=== PATIENT | female | born 1995 ===

== ENCOUNTER 2018-01-31 09:56 | Emergency (ER) | payer MEDICAID, OTHER ==
[2018-01-31 10:32] VITALS: RESP 17; O2SAT 100; BMI 23.9
[2018-01-31] MEDS ORDERED: Sodium Chloride 0.9% 1,000 ML IV ONE (10:41)
[2018-01-31] MEDS ORDERED: levETIRAcetam 1,000 MG in Sodium Chloride 0.9% 100 ML IVPB STA (10:42)
[2018-01-31] MEDS ORDERED: Sodium Chloride 0.9% 1,000 ML ONE (10:56)
[2018-01-31 11:04] LABS: BASO % 0.2 % (0.0-2.0); EOS % 0.4 % (0.0-4.0); HEMOGLOBIN 13.4 g/dL (11.0-16.0); LYMPH # 1.2 K/uL (1.0-4.3); LYMPH % 10.9 % (20.0-40.0); MEAN CORPUSCULAR HEMOGLOBIN 30.1 pg (27.0-31.0); MEAN CORPUSCULAR HGB CONC 33.8 g/dL (33.0-37.0); MEAN PLATELET VOLUME 8.8 fL (7.2-11.7); MONO # 0.6 K/uL (0.0-0.8); MONO % 5.7 % (0.0-10.0); NEUT # 9.2 K/uL (1.8-7.0); NEUT % 82.8 % (50.0-75.0); RBC 4.47 Mil/uL (3.80-5.20); RED CELL DISTRIBUTION WIDTH 13.8 % (11.5-14.5); WHITE BLOOD COUNT 11.1 K/uL (4.8-10.8)
[2018-01-31 11:20] LABS: ALB/GLOB RATIO 1.2 (1.0-2.1); ALBUMIN 4.2 g/dL (3.5-5.0); ALT/SGPT 21 U/L (9-52); AST/SGOT 32 U/L (14-36); BLOOD UREA NITROGEN 16 mg/dL (7-17); GFR AFRICAN-AMERICAN > 60; GFR NON-AFRICAN AMERICAN > 60
--- NOTE | 2018-01-31 12:01 | C.PDOC ---
History Of Present Illness 22 year old female brought in by ambulance s/p seizure at work today. Seizure is described as tonic-clonic, and witnessed by her coworkers. She reports PMHx of seizure disorder, last seizure was approx 1 year ago. Patient admits to not taking her Keppra for approx 1 year. Currently her only complaint is a mild headache. She denies neck pain, urinary or bowel incontinence, or other injuries. Time Seen by Provider: 01/31/18 09:58 Chief Complaint (Nursing): Seizure History Per: Patient History/Exam Limitations: no limitations Recent Seizure Activity Began: Just Before Arrival Number Of Seizures: One Associated Symptoms: Bit Tongue Past Medical History Reviewed: Historical Data, Nursing Documentation, Vital Signs Vital Signs: Last Vital Signs Temp 98.6 F 01/31/18 12:59 Pulse 82 01/31/18 12:59 Resp 17 01/31/18 12:59 BP 103/70 01/31/18 12:59 Pulse Ox 100 01/31/18 13:14 - Medical History PMH: Seizures - [facility] Procedures CL REDUC DISLOC-SHOULDER (03/16/14) Family History: States: No Known Family Hx - Social History Hx Tobacco Use: No Hx Alcohol Use: Yes Hx Substance Use: No - Immunization History Hx Tetanus Toxoid Vaccination: No Hx Influenza Vaccination: No (Declines) Hx Pneumococcal Vaccination: No Review Of Systems Constitutional: Negative for: Fever, Chills Eyes: Negative for: Vision Change ENT: Positive for: Other (bit tongue) Cardiovascular: Negative for: Chest Pain, Palpitations Respiratory: Negative for: Shortness of Breath Gastrointestinal: Negative for: Nausea, Vomiting Genitourinary: Negative for: Incontinence Musculoskeletal: Negative for: Neck Pain, Back Pain Neurological: Positive for: Seizures, Headache (mild). Negative for: Weakness, Numbness, Incoordination, Change in Speech, Confusion, Altered Mental Status, Dizziness Physical Exam - Physical Exam Appears: Well, Non-toxic, No Acute Distress Skin: Warm, Dry Head: Atraumatic, Normacephalic Eye(s): bilateral: Normal Inspection, PERRL, EOMI Nose: Normal Oral Mucosa: Moist Tongue: Laceration (small superficial lacerations noted), No Bleeding Neck: Normal, Normal ROM, No Midline Cervical Tenderness, No Paracervical Tenderness, No Step Off Deformity, Supple Cardiovascular: Rhythm Regular Respiratory: Normal Breath Sounds, No Accessory Muscle Use, No Rales, No Rhonchi , No Wheezing Gastrointestinal/Abdominal: Normal Exam, Bowel Sounds, Soft, No Tenderness Back: Normal Inspection, No Vertebral Tenderness Extremity: Bilateral: Atraumatic, Normal Color And Temperature, Normal ROM Pulses: Left Dorsalis Pedis: Normal, Right Dorsalis Pedis: Normal Neurological/Psych: Oriented x3, Normal Speech, Normal Cognition, Normal Cranial Nerves, No Cerebellar Signs, Normal Motor, Normal Sensation Gait: Steady ED Course And Treatment - Laboratory Results Result Diagrams: 01/31/18 10:54 01/31/18 10:54 O2 Sat by Pulse Oximetry: 100 (RA) Pulse Ox Interpretation: Normal Progress Note: Blood work, UA, Upreg ordered and reviewed. Patient given IV NS bolus, IV Keppra, PO tylenol. Reevaluation Time: 13:15 Reassessment Condition: Improved (On reassessment, patient is resting comfortablyy and feels better. No repeat seizures in ED. Patient s/p IV keppra loading, was given Rx for Keppra and instructed to follow up with neurology within 1 week. She understands she should return to ED if symptoms worsen.) Disposition Counseled Patient/Family Regarding: Studies Performed, Diagnosis, Need For Followup, Rx Given - Disposition Referrals: Shawna Mario MD [Staff Provider] - Disposition: HOME/ ROUTINE Disposition Time: 13:15 Condition: STABLE Additional Instructions: FOLLOW UP WITH NEUROLOGY WITHIN 1 WEEK USE MEDICATION DIRECTED RETURN TO ER IF SYMPTOMS WORSEN Prescriptions: Levetiracetam [Keppra] 500 mg PO BID #60 tablet Instructions: Seizures, Adult (DC) Forms: [employer] (Bolivian), Work Excuse Print Language: ALBANIAN - POA Present On Arrival: None - Clinical Impression Clinical Impression: Seizure disorder - Scribe Statement The provider has reviewed the documentation as recorded by the Scribe (Ligia Christian) Provider Attestation: All medical record entries made by the Scribe were at my direction and personally dictated by me. I have reviewed the chart and agree that the record accurately reflects my personal performance of the history, physical exam, medical decision making, and the department course for this patient. I have also personally directed, reviewed, and agree with the discharge instructions and disposition.
[2018-01-31 12:02] LABS: HCG,QUALITATIVE URINE NEGATIVE (NEGATIVE)
--- NOTE | 2018-01-31 12:23 | C.PDOC ---
Time Seen by Provider: 01/31/18 09:58 Chief Complaint (Nursing): Seizure Past Medical History Vital Signs: Last Vital Signs Temp 98.7 F 01/31/18 10:02 Pulse 92 H 01/31/18 10:22 Resp 17 01/31/18 10:22 BP 109/80 01/31/18 10:22 Pulse Ox 100 01/31/18 10:22 - Medical History PMH: Seizures - [facility] Procedures CL REDUC DISLOC-SHOULDER (03/16/14) Family History: States: Unknown Family Hx - Social History Hx Tobacco Use: No Hx Alcohol Use: Yes Hx Substance Use: No - Immunization History Hx Tetanus Toxoid Vaccination: No Hx Influenza Vaccination: No (Declines) Hx Pneumococcal Vaccination: No ED Course And Treatment O2 Sat by Pulse Oximetry: 100 Disposition - Disposition
[2018-01-31 12:28] LABS: SQUAMOUS EPITHIAL 4 /hpf (0-5); URINE BACTERIA RARE (<OCC); URINE BILIRUBIN NEGATIVE (NEGATIVE); URINE BLOOD NEGATIVE (NEGATIVE); URINE CLARITY Hazy (Clear); URINE COLOR Yellow (YELLOW); URINE GLUCOSE (UA) NORMAL (Normal); URINE LEUKOCYTE ESTERASE TRACE Leu/uL (Negative); URINE PROTEIN NEGATIVE (NEGATIVE); URINE UROBILINOGEN NORMAL mg/dL (0.2-1.0)
[2018-01-31 13:01] VITALS: BP 103/70; PULSE 82; TEMP 98.6
== END 2018-01-31 13:56 | disposition home or self-care (01) ==
LOC: C.ER 09:56
DX: G40.909 Epilepsy, unspecified, not intractable, without status epilepticus (principal)
CPT/HCPCS: 80053; 80177; 81001; 82550; 82948; 84703; 85025; 96361; 96365; 99285; J1953; J7030